=== PATIENT | female | born 1945 | race Caucasian/White ===

== ENCOUNTER 2016-10-04 06:39 | Emergency (ER) | payer MEDICARE, BC ==
[2016-10-04] MEDS ORDERED: NS 0.9% 1000 ML* 1,000 ML IV ONE (09:01)
[2016-10-04] MEDS ORDERED: Metoclopramide IV* 5 MG/ML 2 ML VIAL IV ONE (09:01)
[2016-10-04] MEDS ORDERED: Morphine INJ* 4 MG/ML 1 ML SYRINGE IV ONE (09:03)
[2016-10-04 09:29] LABS: Urine Bilirubin Negative (Negative); Urine Glucose Negative (Negative); Urine Nitrite Negative (Negative)
--- NOTE | 2016-10-04 09:40 | RAD ---
Indication: Fever. 2 views of the chest demonstrate no mediastinal shift. Heart is of normal size and configuration. Lung ruby appear hyperinflated. Calcified lymph nodes are noted in the right hilum. There are no prior exams. IMPRESSION: Calcified right hilar lymph nodes. No active cardiopulmonary disease is noted.
[2016-10-04 09:45] LABS: Hematocrit 39 % (35-47); Mean Corpuscular HGB Conc 34 g/dl (31-36); Mean Corpuscular Hemoglobin 30 pg (27-31); Mean Corpuscular Volume 90 fL (80-97); Mean Platelet Volume 8 um3 (7.4-10.4); Red Blood Count 4.32 10^6/ul (4.0-5.4); Red Cell Distribution Width 13 % (10.5-15); White Blood Count 7.5 10^3/ul (3.5-10.8)
[2016-10-04 09:57] LABS: Albumin 3.7 g/dL (3.2-5.2); C Reactive Protein 18.44 mg/L (< 5.00); Calcium 9.1 mg/dL (8.6-10.3); EGFR African American 127.5 (>60); EGFR Non-African American 99.1 (>60); Globulin 3.2 g/dL (2-4); Potassium 3.9 mmol/L (3.5-5.0); Total Bilirubin 0.4 mg/dL (0.2-1.0); Total Protein 6.9 g/dL (6.4-8.9)
[2016-10-04 13:02] VITALS: BP 110/60
--- NOTE | 2016-10-04 17:03 | ED ---
Katie King Michael, scribed for Nakia Lock MD on 10/04/16 at 0820 . Headache - HPI Summary HPI Summary: The pt is a 71 y/o female presenting with intermittent episodes of CHOUDHARY and fever one week ago that lasted for 3 days. The CHOUDHARY and fever spontaneously alleviated until last night. Pt has hx migraines but states this CHOUDHARY is different than her usual migraines. The fever reached a temperature of 102, and extra strength Tylenol alleviates the pain and fever. Currently at the ED, her temperature is 99.9 and pt rates the pain a 10/10. The headache is bifrontal and does not radiate. She also c/o photophobia, nasal drainage, and nausea. The pt denies vomiting, neck pain, back pain, SOB, CP, sore throat, and cough. The PMHx is significant for sz remotely, 25 years ago, for which she took medication and developed allergic reactions, and has not taken medications for seizures for 25 years. - History Of Current Complaint Chief Complaint: EDHeadache Stated Complaint: MIGRAINE/FEVER Time Seen by Provider: 10/04/16 07:59 Hx Obtained From: Patient, Family/Dictaphone Typist - , Medical Records Onset/Duration: Gradual Onset, Started weeks ago - 1, Still Present, Worse Since - last pm Initially Headache Was: Moderate Currently Pain Is: Current Pain Scale(0-10)= - 10, Moderate Timing: Constant Character: Dull Location of Headache: Frontal Radiates to: negative Aggravating Factor: Bright Lights Allevating Factors: Medication Associated Signs And Symptoms: Negative - vomiting, neck pain, back pain, SOB, CP, sore throat, and cough., Nausea, Fever, Other (Noted In Comments) - CHOUDHARY. photophobia. nasal drainage. - Allergies/Home Medications Allergies/Adverse Reactions: Allergies Allergy/AdvReac Type Severity Reaction Status Date / Time Carbamazepine [From Tegretol] Allergy FULL BODY Verified 10/04/16 06:58 RASH Phenytoin [From Dilantin] Allergy RASH Verified 10/04/16 06:58 -HANDS AND FEET PMH/Surg Hx/FS Hx/Imm Hx Endocrine/Hematology History: Denies: Hx Anticoagulant Therapy, Hx Diabetes, Hx Thyroid Disease Cardiovascular History: Reports: Other Cardiovascular Problems/Disorders - SKIPPED BEAT Denies: Hx Hypertension, Hx Pacemaker/ICD Respiratory History: Reports: Other Respiratory Problems/Disorders Denies: Hx Asthma, Hx Chronic Obstructive Pulmonary Disease (COPD) History: Denies: Hx Renal Disease Musculoskeletal History: Denies: Hx Osteoporosis Sensory History: Reports: Hx Cataracts - BILATERAL, Hx Contacts or Glasses - GLASSES Denies: Hx Hearing Aid Opthamlomology History: Reports: Hx Cataracts - BILATERAL, Hx Contacts or Glasses - GLASSES Neurological History: Reports: Hx Migraine, Hx Seizures, Other Neuro Impairments /Disorders - LYME DISEASE Denies: Hx Dementia Psychiatric History: Denies: Hx Substance Abuse - Cancer History Hx Chemotherapy: No Hx Radiation Therapy: No - Surgical History Surgery Procedure, Year, and Place: 2 C-SECTIONS. 2 COLONOSCOPIES. BUNIONECTOMY -LEFT HIP PINNING 2014 Hx Anesthesia Reactions: Yes - 2ND SPINAL DIDN'T WORK Infectious Disease History: No Infectious Disease History: Denies: Hx Hepatitis, Hx Human Immunodeficiency Virus (HIV), Traveled Outside the [place] in Last 30 Days - Family History Known Family History: Positive: Other - [place]. CVA. Negative: Hypertension, Diabetes Family History: negative breast [place] - Social History Occupation: Retired Lives: With Family Alcohol Use: None Substance Use Type: Reports: None Smoking Status (MU): Never Smoked Tobacco Review of Systems Positive: Fever Positive: Photophobia Positive: Nasal Discharge Positive: Nausea Skin: Negative Positive: Headache Psychological: Normal All Other Systems Reviewed And Are Negative: Yes Physical Exam Triage Information Reviewed: Yes Vital Signs On Initial Exam: Initial Vitals Temp Pulse Resp BP Pulse Ox 99.9 F 105 18 149/69 92 10/04/16 06:45 10/04/16 06:45 10/04/16 06:45 10/04/16 06:45 10/04/16 06:45 Vital Signs Reviewed: Yes Appearance: Positive: Well-Nourished, Ill-Appearing, Pain Distress Skin: Positive: Warm, Skin Color Reflects Adequate Perfusion, Diaphoretic Head/Face: Positive: Normal Head/Face Inspection Eyes: Positive: EOMI, BALWINDER, Conjunctiva Clear, Other: - fundi discs sharp and flat, no hemorrhage ENT: Positive: Normal ENT inspection, Hearing grossly normal, Pharynx normal, Nasal congestion, TMs normal. Negative: Muffled/hoarse voice Neck: Positive: Supple, Nontender, No Lymphadenopathy, Other: - neg Kernig's and neg Brudzinski Respiratory/Lung Sounds: Positive: Clear to Auscultation, Breath Sounds Present Cardiovascular: Positive: RRR, Pulses are Symmetrical in both Upper and Lower Extremities. Negative: Murmur Abdomen Description: Positive: Nontender, No Organomegaly, Soft. Negative: CVA Tenderness (R), CVA Tenderness (L), Distended, Guarding, McBurney's Point Tenderness, Peritoneal Signs, Pulsatile Mass, Splenomegaly Bowel Sounds: Positive: Present Musculoskeletal: Positive: Normal, Strength/ROM Intact Neurological: Positive: Sensory/Motor Intact, Alert, Oriented to Person Place, Time, CN Intact II-III, Reflexes Intact, Speech Normal, Other - negative kernig' s and brudzinski. Negative: Facial Droop, Focal Deficit @, Slurred Speech Psychiatric: Positive: Normal - [place] Coma Scale Coma Scale Total: 15 Diagnostics - Vital Signs Vital Signs Temp Pulse Resp BP Pulse Ox 10/04/16 08:00 92 95 10/04/16 07:30 94 119/55 94 10/04/16 07:03 97 95 10/04/16 07:02 135/61 10/04/16 07:00 99.1 F 98 16 137/65 95 10/04/16 06:55 99.1 F 96 16 149/69 94 10/04/16 06:45 99.9 F 105 18 149/69 92 - Laboratory Lab Results: Lab Results 10/04/16 10/04/16 10/04/16 Range/Units 08:44 09:10 09:20 WBC 7.5 (3.5-10.8) 10^3/ul RBC 4.32 (4.0-5.4) 10^6/ul Hgb 13.0 (12.0-16.0) g/dl Hct 39 (35-47) % MCV 90 (80-97) fL MCH 30 (27-31) pg MCHC 34 (31-36) g/dl RDW 13 (10.5-15) % Plt Count 184 (150-450) 10^3/ul MPV 8 (7.4-10.4) um3 Neut % (Auto) 59.4 (38-83) % Lymph % (Auto) 32.1 (25-47) % [place] % (Auto) 6.3 (1-9) % Eos % (Auto) 0.1 (0-6) % Baso % (Auto) 2.1 H (0-2) % Absolute Neuts (auto) 4.5 (1.5-7.7) 10^3/ul Absolute Lymphs (auto) 2.4 (1.0-4.8) 10^3/ul Absolute Monos (auto) 0.5 (0-0.8) 10^3/ul Absolute Eos (auto) 0 (0-0.6) 10^3/ul Absolute Basos (auto) 0.2 (0-0.2) 10^3/ul Absolute Nucleated RBC 0.01 10^3/ul Nucleated RBC % 0.1 Sodium (133-145) mmol/L Potassium (3.5-5.0) mmol/L Chloride (101-111) mmol/L Carbon Dioxide (22-32) mmol/L Anion Gap (2-11) mmol/L BUN (6-24) mg/dL Creatinine (0.51-0.95) mg/dL Est GFR ( Amer) (>60) Est GFR (Non-Af Amer) (>60) BUN/Creatinine Ratio (8-20) Glucose (70-100) mg/dL Lactic Acid (0.5-2.0) mmol/L Calcium (8.6-10.3) mg/dL Total Bilirubin (0.2-1.0) mg/dL AST (13-39) U/L ALT (7-52) U/L Alkaline Phosphatase (34-104) U/L C-Reactive Protein (< 5.00) mg/L Total Protein (6.4-8.9) g/dL Albumin (3.2-5.2) g/dL Globulin (2-4) g/dL Albumin/Globulin Ratio (1-3) Urine Color Yellow Urine Appearance Clear Urine pH 6.0 (5-9) Ur Specific [place] 1.012 (1.010-1.030) Urine Protein Negative (Negative) Urine Ketones Trace H (Negative) Urine Blood Negative (Negative) Urine Nitrate Negative (Negative) Urine Bilirubin Negative (Negative) Urine Urobilinogen Negative (Negative) Ur Leukocyte Esterase Negative (Negative) Urine Glucose Negative (Negative) Influenza A (Rapid) (Negative) Influenza B (Rapid) (Negative) Group A Strep Rapid Negative (Negative) 10/04/16 10/04/16 10/04/16 Range/Units 09:20 09:20 09:42 WBC (3.5-10.8) 10^3/ul RBC (4.0-5.4) 10^6/ul Hgb (12.0-16.0) g/dl Hct (35-47) % MCV (80-97) fL MCH (27-31) pg MCHC (31-36) g/dl RDW (10.5-15) % Plt Count (150-450) 10^3/ul MPV (7.4-10.4) um3 Neut % (Auto) (38-83) % Lymph % (Auto) (25-47) % [place] % (Auto) (1-9) % Eos % (Auto) (0-6) % Baso % (Auto) (0-2) % Absolute Neuts (auto) (1.5-7.7) 10^3/ul Absolute Lymphs (auto) (1.0-4.8) 10^3/ul Absolute Monos (auto) (0-0.8) 10^3/ul Absolute Eos (auto) (0-0.6) 10^3/ul Absolute Basos (auto) (0-0.2) 10^3/ul Absolute Nucleated RBC 10^3/ul Nucleated RBC % Sodium 133 (133-145) mmol/L Potassium 3.9 (3.5-5.0) mmol/L Chloride 101 (101-111) mmol/L Carbon Dioxide 26 (22-32) mmol/L Anion Gap 6 (2-11) mmol/L BUN 15 (6-24) mg/dL Creatinine 0.60 (0.51-0.95) mg/dL Est GFR ( Amer) 127.5 (>60) Est GFR (Non-Af Amer) 99.1 (>60) BUN/Creatinine Ratio 25.0 H (8-20) Glucose 110 H (70-100) mg/dL Lactic Acid 0.7 (0.5-2.0) mmol/L Calcium 9.1 (8.6-10.3) mg/dL Total Bilirubin 0.40 (0.2-1.0) mg/dL AST 34 (13-39) U/L ALT 40 (7-52) U/L Alkaline Phosphatase 83 (34-104) U/L C-Reactive Protein 18.44 H (< 5.00) mg/L Total Protein 6.9 (6.4-8.9) g/dL Albumin 3.7 (3.2-5.2) g/dL Globulin 3.2 (2-4) g/dL Albumin/Globulin Ratio 1.2 (1-3) Urine Color Urine Appearance Urine pH (5-9) Ur Specific [place] (1.010-1.030) Urine Protein (Negative) Urine Ketones (Negative) Urine Blood (Negative) Urine Nitrate (Negative) Urine Bilirubin (Negative) Urine Urobilinogen (Negative) Ur Leukocyte Esterase (Negative) Urine Glucose (Negative) Influenza A (Rapid) Negative (Negative) Influenza B (Rapid) Negative (Negative) Group A Strep Rapid (Negative) Result Diagrams: 10/04/16 09:20 10/04/16 09:20 Lab Statement: Any lab studies that have been ordered have been reviewed, and results considered in the medical decision making process. - Radiology CXR Xray Interpretation: Positive (See Comments) - Calcified right hilar lymph nodes. No active cardiopulmonary disease is noted. Radiology Interpretation Completed By: Radiologist Headache Course/Dx - Course Course Of Treatment: Discussed patient care with patient and plan for disposition home. The patient was warned about worsening symptoms and if the fever return to visit with her PCP and if unable to see her doctor, to return to the ED. The patient agrees with the course of treatment and plan. - Diagnoses Differential Diagnosis/HQI/PQRI: Meningitis, Migraine, Sinus Headache, Temporal Arteritis, Viral Syndrome Provider Diagnoses: Viral syndrome, Fever Discharge - Discharge Plan Condition: Stable Disposition: HOME Patient Education Materials: Viral Syndrome (ED), Fever in Adults (ED) Referrals: Ariana Alexander MD [Primary Care Provider] - Additional Instructions: Please follow up with Dr. Alexander if your fever of over 100.5 returns. If you are unable to visit your PCP, please return to the ED if your symptoms worsen and fever returns. The documentation as recorded by the Katie hamlin Michael accurately reflects the service I personally performed and the decisions made by , Nakia Lock MD.
== END 2016-10-04 13:28 | disposition home or self-care (01) ==
LOC: ED 06:39
DX: B34.9 Viral infection, unspecified (principal)
CPT/HCPCS: 36415; 71020; 80053; 81003; 83605; 85025; 86140; 86617; 86618; 87040; 87502; 87651; 96360; 96374; 96375; 99283; J2270

== ENCOUNTER 2017-10-20 20:24 | Emergency (ER) | payer MEDICARE, OTHER ==
[2017-10-20 21:33] LABS: Urine Appearance Clear; Urine Blood Negative (Negative); Urine Color Straw; Urine Ketones Negative (Negative); Urine Protein Negative (Negative); Urine Specific Gravity 1.008 (1.010-1.030); Urine Urobilinogen Negative (Negative)
[2017-10-20 21:36] LABS: ABS Basophils 0 10^3/ul (0-0.2); ABS Eosinophils 0.1 10^3/ul (0-0.6); ABS Lymphocytes 1.9 10^3/ul (1.0-4.8); ABS Monocytes 0.6 10^3/ul (0-0.8); ABS Neutrophils 3.8 10^3/ul (1.5-7.7); ABS Nucleated RBC 0 10^3/ul; Eosinophil % 2.3 % (0-6); Hematocrit 38 % (35-47); Hemoglobin 12.9 g/dl (12.0-16.0); Lymphocyte % 29.4 % (25-47); Mean Corpuscular HGB Conc 34 g/dl (31-36); Mean Corpuscular Hemoglobin 32 pg (27-31); Mean Corpuscular Volume 92 fL (80-97); Mean Platelet Volume 7.2 um3 (7.4-10.4); Nucleated Red Blood Cells % 0.1; Platelet Count 226 10^3/ul (150-450); Red Blood Count 4.09 10^6/ul (4.0-5.4); Red Cell Distribution Width 13 % (10.5-15); White Blood Count 6.4 10^3/ul (3.5-10.8)
--- NOTE | 2017-10-20 21:44 | ED ---
Hypertension - HPI Summary HPI Summary: Patient with no history of hypertension complains of elevated SBP 288 with associated mild headache today. Headache since resolved. Denies any other active symptoms here in the ED. Patient states she checks her blood pressure occasionally and baseline is SBP 120-130, occasional measurements of 140-150. Sees PCP once annually, and is due for another evaluation. Denies fever, cough , sore throat, CP, SOB, N/V/D, change in urinary BM. Medical history is seizures. Walks or rides a bicycle every day, denies any CP, SOB with daily exertional activity. States some increasing stress due to planning for upcoming trip to [place]. No anti-coag. Nonsmoker. No cardiac or pulmonary disease history - History of Current Complaint Chief Complaint: EDHypertension Stated Complaint: HIGH BLOOD PRESSURE Time Seen by Provider: 10/20/17 20:56 Hx Obtained From: Patient Onset/Duration: Started Hours Ago Associated Signs & Symptoms: Headaches - Allergies/Home Medications Allergies/Adverse Reactions: Allergies Allergy/AdvReac Type Severity Reaction Status Date / Time carbamazepine [From Tegretol] Allergy Rash Verified 10/20/17 20:28 phenytoin [From Dilantin] Allergy Rash And Verified 10/20/17 20:28 Itching Home Medications: Home Medications Sodium Chloride 3 drop BOTH EYES TID 10/20/17 [History Confirmed 10/20/17] PMH/Surg Hx/FS Hx/Imm Hx Endocrine/Hematology History: Denies: Hx Anticoagulant Therapy, Hx Diabetes, Hx Thyroid Disease Cardiovascular History: Reports: Other Cardiovascular Problems/Disorders - SKIPPED BEAT Denies: Hx Hypertension, Hx Pacemaker/ICD Respiratory History: Reports: Other Respiratory Problems/Disorders Denies: Hx Asthma, Hx Chronic Obstructive Pulmonary Disease (COPD) History: Denies: Hx Renal Disease Musculoskeletal History: Denies: Hx Osteoporosis Sensory History: Reports: Hx Cataracts - BILATERAL, Hx Contacts or Glasses - GLASSES Denies: Hx Hearing Aid Opthamlomology History: Reports: Hx Cataracts - BILATERAL, Hx Contacts or Glasses - GLASSES Neurological History: Reports: Hx Migraine, Hx Seizures, Other Neuro Impairments /Disorders - LYME DISEASE Denies: Hx Dementia Psychiatric History: Denies: Hx Substance Abuse - Cancer History Hx Chemotherapy: No Hx Radiation Therapy: No - Surgical History Surgery Procedure, Year, and Place: 2 C-SECTIONS. 2 COLONOSCOPIES. BUNIONECTOMY -LEFT HIP PINNING 2014 Hx Anesthesia Reactions: Yes - 2ND SPINAL DIDN'T WORK Infectious Disease History: No Infectious Disease History: Denies: Hx Hepatitis, Hx Human Immunodeficiency Virus (HIV), Traveled Outside the [place] in Last 30 Days - Family History Known Family History: Positive: Other - [place]. CVA. Negative: Hypertension, Diabetes Family History: negative breast [place] - Social History Alcohol Use: Occasionally Substance Use Type: Reports: None Smoking Status (MU): Never Smoked Tobacco Review of Systems Constitutional: Negative Eyes: Negative ENT: Negative Positive: Palpitations Respiratory: Negative Gastrointestinal: Negative Genitourinary: Negative Musculoskeletal: Negative Skin: Negative Neurological: Negative Psychological: Normal All Other Systems Reviewed And Are Negative: Yes Physical Exam Triage Information Reviewed: Yes Vital Signs On Initial Exam: Initial Vitals Temp Pulse Resp BP Pulse Ox 99.8 F 87 16 188/89 100 10/20/17 20:26 10/20/17 20:26 10/20/17 20:26 10/20/17 20:26 10/20/17 20:26 Vital Signs Reviewed: Yes Appearance: Positive: Well-Appearing Skin: Positive: Warm Head/Face: Positive: Normal Head/Face Inspection Eyes: Positive: Normal Neck: Positive: Supple Respiratory/Lung Sounds: Positive: Clear to Auscultation Cardiovascular: Positive: Normal Abdomen Description: Positive: Nontender Musculoskeletal: Positive: Normal Neurological: Positive: Normal Psychiatric: Positive: Normal AVPU Assessment: Alert - [place] Coma Scale Best Eye Response: 4 - Spontaneous Best Motor Response: 6 - Obeys Commands Best Verbal Response: 5 - Oriented Coma Scale Total: 15 Diagnostics - Vital Signs Vital Signs Temp Pulse Resp BP Pulse Ox 10/20/17 21:28 77 20 181/78 94 10/20/17 21:18 76 16 172/105 96 10/20/17 21:04 85 18 188/100 97 10/20/17 21:03 85 23 193/97 97 10/20/17 20:58 87 23 168/94 98 10/20/17 20:26 99.8 F 87 16 188/89 100 - Laboratory Lab Results: Lab Results 10/20/17 10/20/17 Range/Units 21:25 21:27 WBC 6.4 (3.5-10.8) 10^3/ul RBC 4.09 (4.0-5.4) 10^6/ul Hgb 12.9 (12.0-16.0) g/dl Hct 38 (35-47) % MCV 92 (80-97) fL MCH 32 H (27-31) pg MCHC 34 (31-36) g/dl RDW 13 (10.5-15) % Plt Count 226 (150-450) 10^3/ul MPV 7.2 L (7.4-10.4) um3 Neut % (Auto) 58.7 (38-83) % Lymph % (Auto) 29.4 (25-47) % [place] % (Auto) 8.9 H (0-7) % Eos % (Auto) 2.3 (0-6) % Baso % (Auto) 0.7 (0-2) % Absolute Neuts (auto) 3.8 (1.5-7.7) 10^3/ul Absolute Lymphs (auto) 1.9 (1.0-4.8) 10^3/ul Absolute Monos (auto) 0.6 (0-0.8) 10^3/ul Absolute Eos (auto) 0.1 (0-0.6) 10^3/ul Absolute Basos (auto) 0 (0-0.2) 10^3/ul Absolute Nucleated RBC 0 10^3/ul Nucleated RBC % 0.1 Urine Color Straw Urine Appearance Clear Urine pH 6.0 (5-9) Ur Specific [place] 1.008 L (1.010-1.030) Urine Protein Negative (Negative) Urine Ketones Negative (Negative) Urine Blood Negative (Negative) Urine Nitrate Negative (Negative) Urine Bilirubin Negative (Negative) Urine Urobilinogen Negative (Negative) Ur Leukocyte Esterase Negative (Negative) Urine Glucose Negative (Negative) Result Diagrams: 10/20/17 21:27 10/20/17 21:27 Lab Statement: Any lab studies that have been ordered have been reviewed, and results considered in the medical decision making process. - Radiology cxr Xray Interpretation: No Acute Changes Radiology Interpretation Completed By: Radiologist - EKG 1 Cardiac Rate: NL EKG Rhythm: Sinus Rhythm ST Segment: Normal Ectopy: None EKG Interpretation: nml Hypertension Course/Dx - Course Course Of Treatment: SBP ranging from 140s to 180s. Other vital signs, labs, imaging within normal limits. Will recommend follow-up with primary care. - Diagnoses Provider Diagnoses: Elevated blood pressure reading Discharge - Sign-Out/Discharge Documenting (check all that apply): Discharge/Admit/Transfer - Discharge Plan Condition: Stable Disposition: HOME Patient Education Materials: Hypertension (ED) Referrals: Ariana Alexander MD [Primary Care Provider] - Additional Instructions: Follow-up with primary care for further evaluation of possible hypertension. Return to the ED for any new or worsening symptoms - Billing Disposition and Condition Condition: STABLE Disposition: HOME
[2017-10-20 21:54] LABS: EGFR Non-African American 93.4 (>60)
--- NOTE | 2017-10-20 21:57 | RAD ---
INDICATION: Hypertension COMPARISON: Chest x-ray October 04, 2016 TECHNIQUE: Single AP portable view of the chest was obtained. FINDINGS: Image quality is compromised due to the relative inferiority of a portable chest x-ray. The heart and mediastinum exhibit normal size and contour. The lungs are grossly clear. There is no evidence of a large pleural effusion. Visualized bones are normal for the patient's age. IMPRESSION: No radiographic evidence for acute cardiopulmonary abnormality on this portable chest x-ray.
[2017-10-20 23:08] VITALS: BP 158/99
== END 2017-10-20 23:16 | disposition home or self-care (01) ==
LOC: ED 20:24
DX: R03.0 Elevated blood-pressure reading, without diagnosis of hypertension (principal); R00.2 Palpitations; R51 Headache; R56.9 Unspecified convulsions; Z88.8 Allergy status to other drugs, medicaments and biological substances
CPT/HCPCS: 36415; 71045; 80053; 81003; 84439; 84443; 84481; 84484; 85025; 86140; 93005; 99283

== ENCOUNTER 2019-08-28 09:44 | Emergency (ER) | payer MEDICARE, OTHER ==
--- NOTE | 2019-08-28 09:59 | ED ---
Hypertension - HPI Summary HPI Summary: Patient is a 74 y/o F presenting to [facility] accompanied by with a chief complaint of elevated BP this morning. She reports that she woke up with lightheadedness, nausea without vomiting, and slight diarrhea, which are symptoms sometimes typical for her migraines although she is not suffering from a headache now. She also notes that a few years ago she had similar symptoms with dehydration and etiology of elevated BP without diagnosis. She had been able to manage her pressures with increased fluid intake but no medications. This led her to measure her BP this morning, and she found it to be 220/110 mmHg , while her usual runs between 120-130/75-80 mmHg. She denies any CP, SOB, or abdominal pain. She notes purulent drainage from the left great toe with recent fungal infection. She is anxious at this time and states cold sensation in her hands. She is not in any pain currently. No past medical history of diabetes. Past medical history includes osteoporosis, migraines, seizures; no diabetes. Nonsmoker, no EtOH, no substance use. Medications reviewed. Allergies noted. - History of Current Complaint Chief Complaint: EDHypertension Stated Complaint: HIGH BLOOD PRESSURE PER PT Time Seen by Provider: 08/28/19 09:51 Hx Obtained From: Patient Onset/Duration: Started Hours Ago, Still Present Timing: Constant Reported Blood Pressure Prior To Arrival: 220/110 Aggravating Factor(s): Nothing Alleviating Factor(s): Nothing Associated Signs & Symptoms: Anxiety/Stress, Other: - lightheadedness, nausea, cold sensation in hands; Negative: vomiting, abd pain, CP, SOB, headache Related Hx: Diagnosed As: - hypertension - Allergies/Home Medications Allergies/Adverse Reactions: Allergies Allergy/AdvReac Type Severity Reaction Status Date / Time carbamazepine [From Tegretol] Allergy Rash Verified 08/28/19 09:46 phenytoin [From Dilantin] Allergy Rash And Verified 08/28/19 09:46 Itching Home Medications: Home Medications Sodium Chloride 3 drop BOTH EYES TID 10/20/17 [History Confirmed 08/28/19] Hydrocortisone [Cortisone] 1 applic TOPICAL DAILY PRN 08/28/19 [History Confirmed 08/28/19] Lifitegrast (NF) [Xiidra (NF)] 1 drop BOTH EYES BID 08/28/19 [History Confirmed 08/28/19] Magnesium Oxide TAB* [MagOx 400 TAB*] 400 mg PO DAILY 08/28/19 [History Confirmed 08/28/19] Peg 400/Hypromellose/Glycerin [Dry Eye Relief Eye Drops] 1 drop BOTH EYES Q2H PRN 08/28/19 [History Confirmed 08/28/19] Sodium Chloride 2% OPTH.BRADLEY* [Neva 128 Opth 2% Bradley*] 1 drop BOTH EYES TID [History Confirmed 08/28/19] diphenhydrAMINE HCl [Sleep Aid] 12.5 mg PO BEDTIME PRN 08/28/19 [History Confirmed 08/28/19] PMH/Surg Hx/FS Hx/Imm Hx Endocrine/Hematology History: Denies: Hx Anticoagulant Therapy, Hx Diabetes, Hx Thyroid Disease Cardiovascular History: Reports: Hx Hypertension - lifestyle managed, no meds, Other Cardiovascular Problems/Disorders - SKIPPED BEAT Denies: Hx Pacemaker/ICD Respiratory History: Reports: Other Respiratory Problems/Disorders Denies: Hx Asthma, Hx Chronic Obstructive Pulmonary Disease (COPD) History: Denies: Hx Dialysis, Hx Renal Disease Musculoskeletal History: Reports: Hx Osteoporosis Denies: Hx Scoliosis Sensory History: Reports: Hx Cataracts - BILATERAL, Hx Contacts or Glasses - GLASSES Denies: Hx Hearing Aid Opthamlomology History: Reports: Hx Cataracts - BILATERAL, Hx Contacts or Glasses - GLASSES Neurological History: Reports: Hx Migraine, Hx Seizures Denies: Hx Dementia, Hx Headaches, Other Neuro Impairments/Disorders Psychiatric History: Denies: Hx Panic Disorder, Hx Substance Abuse - Cancer History Hx Chemotherapy: No Hx Radiation Therapy: No - Surgical History Surgical History: Yes Surgery Procedure, Year, and Place: 2 C-SECTIONS. [facility] - BUNIONECTOMY -W/ PINS. LEFT HIP W/ SCREW 2014. [facility] CATARACTS Hx Anesthesia Reactions: Yes - 2ND SPINAL DIDN'T WORK Infectious Disease History: No Infectious Disease History: Denies: Hx Hepatitis, Hx Human Immunodeficiency Virus (HIV), Traveled Outside the [place] in Last 30 Days - Family History Known Family History: Positive: Other - CA. CVA. Negative: Hypertension, Diabetes Family History: negative breast CA - Social History Alcohol Use: Occasionally Hx Substance Use: No Substance Use Type: Reports: None Hx Tobacco Use: No Smoking Status (MU): Never Smoked Tobacco Review of Systems Negative: Chest Pain Negative: Shortness Of Breath Positive: Diarrhea, Nausea. Negative: Abdominal Pain, Vomiting Positive: Other - fungal infection in toe Neurological/Mental Status: Other - lightheadedness, cold sensation in her hands Negative: Headache Positive: Anxious All Other Systems Reviewed And Are Negative: Yes Physical Exam Vital Signs On Initial Exam: Initial Vitals Temp Pulse Resp BP Pulse Ox 97.9 F 96 18 212/116 99 08/28/19 09:45 08/28/19 09:45 08/28/19 09:45 08/28/19 09:45 08/28/19 09:45 Procedures - Sedation Patient Received Moderate/Deep Sedation with Procedure: No Diagnostics - Vital Signs Vital Signs Temp Pulse Resp BP Pulse Ox 08/28/19 09:45 97.9 F 96 18 212/116 99 - Laboratory Result Diagrams: 08/28/19 10:07 08/28/19 10:07 Lab Statement: Any lab studies that have been ordered have been reviewed, and results considered in the medical decision making process. - EKG 1016 Cardiac Rate: NL - 79 BPM EKG Rhythm: Sinus Rhythm Summary of EKG Findings: An EKG at 1016 reveals normal sinus rhythm at rate of [address]PM[address] No ischemic changes. Dr. Mckeon has reviewed and interpreted this EKG. Re-Evaluation - Re-Evaluation First Eval Re-Evaluation Time: 12:00 Change: Improved Comment: Patient ambulating well. BP improved since arrival; prior to ambulation was 168/66 mmHg, after ambulation 173/82 mmHg. Patient comfortable with discharge. Hypertension Course/Dx - Course Course Of Treatment: Patient is a 74 y/o F presenting with measured elevated BP of 220/110 mmHg at home after beginning to experience lightheadedness, nausea without vomiting, and slight diarrhea. Previous similar episode of known elevated BP etiology, currently lifestyle-controlled, no meds or dx of HTN. Noted purulent drainage in left great toe with recent fungal infection. Additionally is anxious, has cold sensation in hands. Physical exam significant for left great toe with focal region of erythema/small abscess with tenderness to palpation. Patient received Xanax for anxiety. Blood work without significant abnormality except for BUN/creatinine ratio of 35.7. An EKG at 1016 reveals normal sinus rhythm at rate of 79 BPM, no ischemic changes. All results discussed with patient. Patients fit/active on regular basis. No hx of HTN at baseline. Recent spike in BP likely secondary to stress/anxiety associated with COVID. Patient comfortable with discharge home. Instructed to keep daily BP log and follow up with PCP in several days. Return precautions given. Patient agreeable with plan. - Diagnoses Provider Diagnoses: Anxiety, Elevated blood-pressure reading without diagnosis of hypertension Discharge ED - Sign-Out/Discharge Documenting (check all that apply): Patient Departure - Patient will be discharged home. - Discharge Plan Condition: Stable Disposition: HOME Patient Education Materials: Hypertension (ED), Anxiety (ED) Referrals: Ariana Alexander MD [Primary Care Provider] - 3 Days Additional Instructions: Follow up with your primary care provider in 2-3 days. Return to the emergency department for any new or worsening symptoms. - Billing Disposition and Condition Condition: STABLE Disposition: Home - Attestation Statements Document Initiated by Zen: Yes Documenting Scribe: Giovana Canseco Provider For Whom Zen is Documenting (Include Credential): Lewis Mckeon DO [employer] Attestation: Giovana King scribed for Lewis Mckeon DO on 08/28/19 at 1715. Scribe Documentation Reviewed: Yes Provider Attestation: The documentation as recorded by the Giovana hamlin accurately reflects the service I personally performed and the decisions made by me, Lewis Mckeon DO Status of Zen Document: Viewed
[2019-08-28] MEDS ORDERED: ALPRAZolam TAB* 0.25 MG PO ONE (10:31)
[2019-08-28 10:32] LABS: ABS Eosinophils 0.1 10^3/ul (0-0.6); ABS Monocytes 0.6 10^3/ul (0-0.8); ABS Neutrophils 4.9 10^3/ul (1.5-7.7); Eosinophil % 1.3 %; Hematocrit 41 % (35-47); Hemoglobin 13.7 g/dL (12.0-16.0); Lymphocyte % 15.7 %; Mean Corpuscular HGB Conc 34 g/dL (31-36); Mean Corpuscular Hemoglobin 30 pg (27-31); Mean Corpuscular Volume 91 fL (80-97); Mean Platelet Volume 7.4 fL (7.4-10.4); Platelet Count 256 10^3/uL (150-450); Red Blood Count 4.49 10^6 /uL (3.70-4.87); Red Cell Distribution Width 13 % (10-15); White Blood Count 6.6 10^3/uL (3.5-10.8)
[2019-08-28 10:45] LABS: Albumin 4.3 g/dL (3.2-5.2); Albumin/Globulin Ratio 1.6 (1-3); BUN/Creatinine Ratio 35.7 (8-20); Calcium 9.7 mg/dL (8.6-10.3); EGFR African American 128.8 (>60); EGFR Non-African American 106.4 (>60); Globulin 2.7 g/dL (2-4); Total Bilirubin 0.4 mg/dL (0.2-1.0)
[2019-08-28 11:02] LABS: TSH (Thyroid Stimulating Horm) 1.56 mcIU/mL (0.34-5.60)
[2019-08-28 12:45] VITALS: BP 159/81
== END 2019-08-28 12:44 | disposition home or self-care (01) ==
LOC: ED 09:44
DX: R42 Dizziness and giddiness (principal); R11.0 Nausea; R19.7 Diarrhea, unspecified; I10 Essential (primary) hypertension; M81.0 Age-related osteoporosis without current pathological fracture; F41.9 Anxiety disorder, unspecified; Z79.899 Other long term (current) drug therapy
CPT/HCPCS: 36415; 80053; 84443; 85025; 93005; 99282; A9270-GY